=== PATIENT | male | born 1950 | race Caucasian/White ===

== ENCOUNTER 2017-03-05 10:27 | Day surgery (SDC) | payer OTHER, MEDICARE ==
[~2017-03-05] VITALS: Ht 172.7 cm; Wt 94.2 kg
--- NOTE | ~2017-03-05 | OR ---
PATIENT'S NAME: KATIE BARRETT [facility] AGE: 66 Y [address] ROOM: [place] [id number] LOCATION: [facility] [place] ADMIT DATE: 03/05/2017 OR/Procedure Report DISCHARGE DATE: 03/06/2017 FAMILY PHYSICIAN: Deisi Cade ATTENDING PHYSICIAN: Yesi Jeffries SURGEON: Yesi Jeffries MD DICER MACHINE OPERATOR: Sam Velazquez. DATE OF PROCEDURE: 03/05/2017 PREOPERATIVE DIAGNOSIS: Cervical spinal stenosis. POSTOPERATIVE DIAGNOSIS: Cervical spinal stenosis. PROCEDURE PERFORMED: 1. Redo anterior cervical diskectomy with decompression of neural elements and foraminotomy at C6-7. 2. Structural allograft and morselized allograft fusion at C6-7. 3. Removal of previous anterior cervical plate from C4-C6. 4. Use of intraoperative microscope. ANESTHESIA: General. INDICATIONS: The patient is a 66-year-old gentleman, who presented with numbness in his hands. The patient had had prior anterior cervical diskectomy at C4-5, C5-6, and C6-7 with instrumentation at C4-6. He did well initially, but began to complain of new symptoms of numbness in his hands. Imaging studies showed persistent stenosis at the C6-7 level. It was necessary to revise the C6-7 fusion in order to decompress his spinal cord at this level. The procedure, benefits, and risks were discussed with the patient and with his consent, he was brought to the operating room for surgery. PROCEDURE IN DETAIL: In the operating room, the patient was placed in a supine position. Anesthesia was induced and he was intubated. His head was placed in a gel donut and his neck was placed in extension with a roll under his shoulders. The incision line was marked out along the anterior border of the right sternomastoid muscle, corresponding to the previous incision. The whole area was prepped and draped in a sterile fashion. Local anesthesia was infiltrated. The #10 blade was used to open the incision. The anterior border of the sternomastoid muscle was identified. Dissection was continued along the anterior border of the sternomastoid muscle until the omohyoid muscle was seen. Working in the space between these two muscles, the anterior cervical spine was visualized. The Cloward handheld retractors were used to improve visualization. As we got to the anterior surface of the cervical spine, the plate used for PATIENT'S NAME: KATIE BARRETT [facility] AGE: 66 Y [address] ROOM: [place], [place] [id number] LOCATION: [facility] [place] ADMIT DATE: 03/05/2017 OR/Procedure Report DISCHARGE DATE: 03/06/2017 FAMILY PHYSICIAN: Deisi Cade ATTENDING PHYSICIAN: Yesi Jeffries his previous surgery became visible. I knew that the C6-7 level was just caudal to the end of the plate. We, therefore, explored this area and found the disk space. An x-ray was obtained to verify the levels. It was necessary to remove the previous plate to provide adequate access for decompressing the C6-7 level. The previous plate was therefore removed. Intraoperative x-ray was obtained to verify the level. The belting cutter retractors were inserted under the longus colli muscles, which had been dissected from the anterior surface of the spine. There was pieces of bone from the previous fusion at C6-7. This bone graft was removed piecemeal using the drill, Kerrison rongeur, and a pituitary rongeur in some areas. Decompression continued until we could see the dura. Foraminotomy was carried out bilaterally. The patient was more symptomatic in his left hand and the nerve roots here was more compressed. Foraminotomy continued until the nerve roots could be seen. The C6 and C7 endplates were then prepared for fusion. A fresh bone graft was inserted. The bone graft was filled with demineralized bone matrix and inserted into the disk space. We had a very snug fit. Irrigation was used to wash out the debris and hemostasis was achieved. I did not put a new plate at C6-7. I felt the bone graft was secure enough, not to need plating. Hemostasis was achieved. The incision was closed in layers using appropriate suture materials. A sterile dressing was applied. The patient's anesthesia was reversed. He was extubated and taken to the recovery room to complete his recovery. I was present and performed every aspect of this procedure, assisted some stages by the operating room nurses. There were no apparent intraoperative complications. Swabs, needles, and instruments were all accounted for at the end of the case. Estimated blood loss was less than 100 mL and there was no reason for blood transfusion. I expect the patient to benefit from this procedure. I expect the numbness and tingling in his hands to get better. MD JUSTINE LITTLEJOHN/carla PATIENT'S NAME: KATIE BARRETT [facility] AGE: 66 Y [address] ROOM: [place] [address] LOCATION: [facility] [place] ADMIT DATE: 03/05/2017 OR/Procedure Report DISCHARGE DATE: 03/06/2017 FAMILY PHYSICIAN: Deisi Cade ATTENDING PHYSICIAN: Yesi Jeffries /[id number] d: 03/16/1756 t: 03/19/17 0731, OPERATIVE SUMMARY
[~2017-03-05 10:27] MED LIST: ADVIL200 MG PO; ALLERGY RELIEF25 M1 PO; ASPIRIN LO-DOSE81 MG PO; CPAP INH; CYMBALTA60 MG PO; HEADACHE FORMU1 EACH PO; INDERAL40 MG PO; KEFLEX500 MG PO; LIPITOR40 MG PO; METAMUCIL PACKE1 PKT PO; NORCO 5-325 MG1 TAB PO; PROTONIX20 MG PO; PROTONIX40 MG PO; TENORMIN25 M1 PO; ZYRTEC10 MG PO
[2017-03-05 11:18] LABS: INR - (THERAPEUTIC) 1.04 (0.92-1.07); PROTIME 10.9 SECONDS (9.8-11.4)
[2017-03-06] MEDS ORDERED: NORCO 5-325 TA1 EACH PO (12:16)
== END 2017-03-06 12:38 | disposition disaster alternative care site (69) ==
LOC: GNTU 10:27 → GSDC 10:27 → GNTU 17:03 → GSDC 03-06 12:38
PROVIDERS: Neurological Surgery
PROC: 0RB30ZZ Excision of Cervical Vertebral Disc, Open Approach (ICD-10-PCS; principal; 2017-03-05)
PROC: 00NW0ZZ Release Cervical Spinal Cord, Open Approach (ICD-10-PCS; 2017-03-05)
DX: M48.02 Spinal stenosis, cervical region (principal); M47.892 Other spondylosis, cervical region; I10 Essential (primary) hypertension; K21.9 Gastro-esophageal reflux disease without esophagitis; E78.5 Hyperlipidemia, unspecified; R25.1 Tremor, unspecified; F17.210 Nicotine dependence, cigarettes, uncomplicated; Z98.1 Arthrodesis status; Z98.890 Other specified postprocedural states
CPT/HCPCS: A9270; C1713; G8978; G8979; G8980; G8987; G8988; G8989; J0690; J1100; J2250; J2405; J7030